=== PATIENT | male | born 1960 | race Caucasian/White ===

== ENCOUNTER 2021-11-06 16:43 | Emergency (ER) | payer OTHER ==
[2021-11-06] MEDS ORDERED: TORADOL 10 MG T10 MG PO (19:43)
== END 2021-11-06 20:14 | disposition home or self-care (01) ==
LOC: ER1 16:43
DX: U07.1 COVID-19 (principal); S92.354A Nondisplaced fracture of fifth metatarsal bone, right foot, initial encounter for closed fracture; S83.92XA Sprain of unspecified site of left knee, initial encounter; S70.02XA Contusion of left hip, initial encounter; W01.0XXA Fall on same level from slipping, tripping and stumbling without subsequent striking against object, initial encounter; Y92.009 Unspecified place in unspecified non-institutional (private) residence as the place of occurrence of the external cause
CPT/HCPCS: 73502; 73564; 73630; 96372; 99283; J1885; U0002

== ENCOUNTER 2021-11-21 00:27 | Emergency (ER) | payer OTHER ==
[~2021-11-21 00:27] MED LIST: TORADOL 10 MG T10 MG PO
[2021-11-21] MEDS ORDERED: LODINE CAP 300300 MG PO ×2 (02:43→02:58)
== END 2021-11-21 02:56 | disposition home or self-care (01) ==
LOC: ER1 00:27
DX: S01.01XA Laceration without foreign body of scalp, initial encounter (principal); S93.601A Unspecified sprain of right foot, initial encounter; S83.92XA Sprain of unspecified site of left knee, initial encounter; W19.XXXA Unspecified fall, initial encounter; Z90.49 Acquired absence of other specified parts of digestive tract
CPT/HCPCS: 73564; 73630; 99283